=== PATIENT | male | born 1960 | race Caucasian/White ===

== ENCOUNTER 2018-12-02 18:54 | Emergency (ER) | payer OTHER ==
[~2018-12-02] VITALS: Ht 180.3 cm; Wt 82.0 kg
[~2018-12-02 18:54] MED LIST: CIPR500T4 PO; DOCU-144 PO; GABA-526 PO; HYDR25SU24 PR; OLAN20TA3 PO
[2018-12-02 19:06] VITALS: Ht 180.3 cm; Wt 82.0 kg
== END 2018-12-02 22:00 | disposition left against medical advice (07) ==
LOC: E/R 18:54
DX: Z53.21 Procedure and treatment not carried out due to patient leaving prior to being seen by health care provider (principal)